=== PATIENT | female | born 1935 | race Caucasian/White ===

== ENCOUNTER → 2017-02-16 | Outpatient (CLI) | payer OTHER ==
[~2017-02-16] MED LIST: ASPIRIN81 M1 PO; CLARITIN10 M1 PO; MAXZIDE 37.5 M1 EACH PO; PROTONIX PO; REGLAN PO
--- NOTE | ~2017-02-16 | MY6 ---
[facility] A Service of [facility] RADIOLOGY TEXT RESULTS PATIENT: MARISSA BYNUM LOCATION: [facility] : 37 UNIT #: [id number] AGE: [address]: LIDA HAN APRN SEX: F ORDER DR: [id number] [facility] [address] [place], [place] [address] [id number] O MR#: [id number] Acc #: [id number] NAME: MARISSA BYNUM : 1935 SEX: F STUDY DATE/TIME: 02/16/2017 11:25 UNIT: [facility] ROOM: STUDY DESCRIPTION: MY Mammogram Dx Dig Junito Attending Physician: Lida Valdovinos M.D. Ordering Physician: Lida Valdovinos M.D. Primary Care Physician: Lida Valdovinos M.D. MEDICAL IMAGING REPORT This report is preliminary unless electronic signature is present EXAM Bilateral digital diagnostic mammogram. INDICATION Diffuse left breast pain for the past 2-3 months. History of previous left ultrasound biopsy with subsequent resection. PROCEDURE Bilateral CC and MLO views. True lateral view of the left breast. Images obtained on a digital mammography unit. FDA-approved CAD device was utilized. COMPARISON STUDIES Screening mammogram from 08/04/2015. FINDINGS Scattered fibroglandular density. There is no dominant mass or suspicious calcification. The previously demonstrated 9-10 mm nodule in the left breast at approximately the 3 o'clock position has been removed. There is no new dominant mass. No suspicious microcalcifications. IMPRESSION Benign bilateral diagnostic mammogram. Recommend patient continue with yearly screening. Patients over the age of 40 are entered into a reminder system with target due date for the next mammogram. A result letter will also be sent to the patient. BIRADS: 2 Benign finding. [facility] A Service [facility] RADIOLOGY TEXT RESULTS PATIENT: MARISSA BYNUM LOCATION: [facility] : 37 UNIT #: [id number] AGE: [address]: LIDA HAN APRN SEX: F ORDER DR: Dictated by... Yang Price M.D. THIS IS AN ELECTRONICALLY VERIFIED REPORT Yang Price M.D. at 02/16/2017 5:05 PM MELISA/willy TD: 02/16/2017 14:14 JOB #: [id number] MEDICAL IMAGING REPORT Page 1 of 1 COPY
== END | disposition home or self-care (01) ==
LOC: CMAM 10:45
DX: N63 Unspecified lump in breast (principal)
CPT/HCPCS: G0204

== ENCOUNTER → 2017-05-16 | Outpatient (CLI) | payer OTHER ==
--- NOTE | ~2017-05-16 | CT4 ---
[facility] A Service of [facility] RADIOLOGY TEXT RESULTS PATIENT: MARISSA BYNUM LOCATION: [facility] : 37 UNIT #: [id number] AGE: [address]: LIDA HAN APRN SEX: F ORDER DR: [id number] [facility] [address] [place], [place] [address] [id number] O MR#: [id number] Acc #: [id number] NAME: MARISSA BYNUM : 1935 SEX: F STUDY DATE/TIME: 05/16/2017 12:58 UNIT: [facility] ROOM: STUDY DESCRIPTION: CT Abd and Pelv Wo Cont Attending Physician: Lida Valdovinos M.D. Referring Physician: Lida Valdovinos M.D. Ordering Physician: Staff Doctor Not On Primary Care Physician: Lida Valdovinos M.D. MEDICAL IMAGING REPORT This report is preliminary unless electronic signature is present EXAM CT abdomen and pelvis without contrast INDICATIONS Right-sided abdominal pain and nausea for the past [address] of the abdomen and pelvis This CT exam was performed with one or more of the following radiation dose reduction techniques: automatic control, adjustment of mA and/or kV according to patient size, and iterative reconstruction. COMPARISON None FINDINGS ABDOMEN WITHOUT CONTRAST: The included lung bases are clear. The liver spleen kidneys adrenal glands pancreas unremarkable. Previous cholecystectomy. Uncomplicated sigmoid diverticula. PELVIS WITHOUT CONTRAST: Probable fibroid left posterior uterus measures 2.4 cm. No pelvic mass or fluid. No aggressive appearing bone lesion. IMPRESSION 1. No acute findings in the abdomen or pelvis. 2. Probable fibroid in the uterus. 3. Uncomplicated sigmoid diverticulosis Dictated by... Yang Price M.D. [facility] A Service [facility] RADIOLOGY TEXT RESULTS PATIENT: MARISSA BYNUM LOCATION: [facility] : 37 UNIT #: [id number] AGE: [address]: LIDA HAN APRN SEX: F ORDER DR: THIS IS AN ELECTRONICALLY VERIFIED REPORT Yang Price M.D. at 05/17/2017 10:08 AM MELISA/jessica TD: 05/16/2017 16:33 JOB #: [id number] MEDICAL IMAGING REPORT Page 1 of 1 COPY
[2017-05-16 17:41] LABS: POC - CREATININE 1.4 mg/dL (0.44-1.03)
== END | disposition home or self-care (01) ==
LOC: CCAT 11:39
PROVIDERS: Nurse Practitioner Family
DX: R10.9 Unspecified abdominal pain (principal); R11.0 Nausea; K57.30 Diverticulosis of large intestine without perforation or abscess without bleeding
CPT/HCPCS: 74176; 82565